=== PATIENT | male | born 1990 | race Caucasian/White ===

== ENCOUNTER 2018-04-29 21:54 | Emergency (ER) | payer BC, OTHER ==
--- NOTE | 2018-04-30 00:36 | ER ---
Nurse's Notes [facility] Name: Soham Shabazz Age: 27 yrs Sex: Male : 1990 Arrival Date: 04/29/2018 Time: 22:10 Bed 12 Private MD: Diagnosis: Low back pain;Sciatica, right side Presentation: 04/29 22:31 Presenting complaint: Patient states: "I've got a lower back injury from work that aj1 happened around 5:05, at first it hurt on the right side its getting worse and radiating to left side of my back and into my leg. I also have tingling in my toes on my right leg." Reports that pain is worse with movement. States he was carrying a box of 2000 copies and when he went to put it in the car he tripped on his left foot, then caught that box and twisted. He felt a pull and some sharp pain at that time. Transition of care: patient was not received from another setting of care. Onset of symptoms was April 29, 2018. Risk Assessment: Do you want to hurt yourself or someone else? Patient reports no desire to harm self or others. Initial Sepsis Screen: Does the patient meet any 2 criteria? No. Patient's initial sepsis screen is negative. Does the patient have a suspected source of infection? No. Patient's initial sepsis screen is negative. Care prior to arrival: None. 22:31 Method Of Arrival: Ambulatory aj1 22:31 Acuity: KRISTOPHER 4 aj1 Triage Assessment: 22:34 General: Appears in no apparent distress. uncomfortable, Behavior is calm, cooperative, aj1 appropriate for age. Pain: Complains of pain in mid back area Pain does not radiate. Pain currently is 4 out of 10 on a pain scale. at worst was 6 out of 10 on a pain scale. Quality of pain is described as sharp, Pain began 5 hours ago Is continuous, Aggravated by repositioning, movement. Neuro: Level of Consciousness is awake, alert, obeys commands, Oriented to person, place, time, situation, Moves all extremities. Full function Gait is steady, Speech is normal, Numbness in right foot. Cardiovascular: Patient's skin is warm and dry. Respiratory: Airway is patent Respiratory effort is even, unlabored, Respiratory pattern is regular, symmetrical. GI: No signs and/or symptoms were reported involving the gastrointestinal system. : No signs and/or symptoms were reported regarding the genitourinary system. Derm: No signs and/or symptoms reported regarding the dermatologic system. Skin is pink, warm \\T\\ dry. normal. Musculoskeletal: Range of motion: intact in all extremities. Historical: - Allergies: 22:34 No Known Allergies; aj1 - Home Meds: 22:34 None [Active]; aj1 - PMHx: 22:34 None; aj1 - PSHx: 22:34 None; aj1 - Immunization history:: Flu vaccine is not up to date. - Social history:: Smoking status: Patient/guardian denies using tobacco. - Ebola Screening: : Patient denies travel to an Ebola-affected area in the 21 days before illness onset. - Family history:: not pertinent. Screenin:20 Abuse screen: Denies threats or abuse. Nutritional screening: No deficits noted. fc Tuberculosis screening: No symptoms or risk factors identified. Fall Risk None identified. Assessment: 22:13 Reassessment: Patient is on the phone with his work, states that he will let us know aj1 when he is ready to be triaged. 23:20 General: Appears uncomfortable, obese, Behavior is calm, cooperative, appropriate for fc age. Pain: Complains of pain in low back area Pain radiates to right leg Pain currently is 4 out of 10 on a pain scale. at worst was 7 out of 10 on a pain scale. Quality of pain is described as aching, dull, radiating, Pain began 6 hrs ago Is continuous, Aggravated by increased activity, repositioning, weight bearing. Neuro: Level of Consciousness is awake, alert, obeys commands, Oriented to person, place, time, situation, Laundry Superintendent are equal bilaterally Moves all extremities. Full function Gait is steady, Speech is normal, Facial symmetry appears normal. Cardiovascular: No deficits noted. Respiratory: No deficits noted. GI: No deficits noted. : No deficits noted. EENT: No deficits noted. Derm: Skin is pink, warm \\T\\ dry. Musculoskeletal: Circulation, motion, and sensation intact. Capillary refill < 3 seconds, Range of motion: intact in all extremities, Reports pain in low back area that radiates down his right leg. 04/30 00:01 Reassessment: PT TO XRAY WITH [employer]. bp 00:18 Reassessment: PT RETURNED FROM XRAY. ALL CURRENT ORDERS COMPLETED. NO ACUTE FINDINGS AT bp THIS TIME. 00:52 Reassessment: PT D/C HOME AMBULATORY, DX WITH SCIATICA. bp Vital Signs: 04/29 22:34 BP 135 / 87; Pulse 98; Resp 18; Temp 98.1(O); Pulse Ox 98% on R/A; Weight 139.71 kg aj1 (R); Height 6 ft. 0 in. (182.88 cm); Pain 10/10; 22:34 Body Mass Index 41.77 (139.71 kg, 182.88 cm) aj1 ED Course: 22:10 Patient arrived in ED. aj1 22:34 Triage completed. aj1 22:34 Arm band placed on Patient placed in waiting room, Patient notified of wait time. aj1 23:20 Patient has correct armband on for positive identification. Call light in reach. fc 23:33 Guillermo Nash MD is Attending Physician. leticia 23:52 Edgar Helm, MARIA DOLORES is Primary Nurse. bp 04/30 00:06 Patient moved to radiology via wheelchair. kw 00:06 X-ray completed. Patient tolerated procedure well. kw 00:06 Patient moved back from radiology. kw 00:09 Lumbar Spine (3 Views) XRAY In Process Unspecified. EDMS 00:52 No provider procedures requiring assistance completed. Patient did not have IV access bp during this emergency room visit. Administered Medications: 00:45 Drug: Motrin 800 mg Route: PO; bp 00:51 Follow up: Response: Medication administered at discharge. bp 00:45 Drug: Decadron 4 mg Route: PO; bp 00:51 Follow up: Response: Medication administered at discharge. bp 00:45 Drug: Cascade 10 mg-325 mg 1 tabs Route: PO; bp 00:51 Follow up: Response: Medication administered at discharge. bp 00:45 Drug: Valium 5 mg Route: PO; bp 00:51 Follow up: Response: Medication administered at discharge. bp Outcome: 00:36 Discharge ordered by . leticia 00:52 Discharged to home ambulatory, with family. bp 00:52 Condition: stable 00:52 Discharge instructions given to patient, Instructed on discharge instructions, follow up and referral plans. medication usage, Demonstrated understanding of instructions, follow-up care, medications, Prescriptions given X 4. 00:53 Patient left the ED. bp Signatures: Dispatcher [employer] Marva Montgomery RN RN aj1 Guillermo Nash MD MD cha Chretien, Felicia, RN RN Mis Montoya Brian, MARIA DOLORES RN bp
--- NOTE | 2018-04-30 00:36 | EDPHYS ---
Physician Documentation [facility] Name: Soham Shabazz Age: 27 yrs Sex: Male : 1990 Arrival Date: 04/29/2018 Time: 22:10 Bed 12 Private MD: ED Physician Guillermo Nash HPI: 04/30 00:29 This 27 yrs old Male presents to ER via Ambulatory with complaints of Back leticia Pain. 00:29 The patient presents with pain that is acute. The symptoms are located in the low back, leticia coccyx area, lumbar area, sacrum, left low back and right low back. Onset: The symptoms/episode began/occurred yesterday. The pain radiates to the buttocks and right leg and right foot. Associated signs and symptoms: Pertinent positives:. Modifying factors: The patient symptoms are alleviated by remaining still, the patient symptoms are aggravated by any movement, bending, coughing, lifting, movement, nothing, playing sports. Severity of symptoms: At their worst the symptoms were moderate, in the emergency department the symptoms are unchanged. Historical: - Allergies: 04/29 22:34 No Known Allergies; aj1 - Home Meds: 22:34 None [Active]; aj1 - PMHx: 22:34 None; aj1 - PSHx: 22:34 None; aj1 - Immunization history:: Flu vaccine is not up to date. - Social history:: Smoking status: Patient/guardian denies using tobacco. - Ebola Screening: : Patient denies travel to an Ebola-affected area in the 21 days before illness onset. - Family history:: not pertinent. ROS: 04/30 00:29 Constitutional: Negative for fever, chills, and weight loss, Eyes: Negative for injury, leticia pain, redness, and discharge, ENT: Negative for injury, pain, and discharge, Neck: Negative for injury, pain, and swelling, Cardiovascular: Negative for chest pain, palpitations, and edema, Respiratory: Negative for shortness of breath, cough, wheezing, and pleuritic chest pain, Abdomen/GI: Negative for abdominal pain, nausea, vomiting, diarrhea, and constipation, Back: Negative for injury and pain, : Negative for injury, bleeding, discharge, and swelling, MS/Extremity: Negative for injury and deformity, Skin: Negative for injury, rash, and discoloration, Neuro: Negative for headache, weakness, numbness, tingling, and seizure, Psych: Negative for depression, anxiety, suicide ideation, homicidal ideation, and hallucinations, Allergy/Immunology: Negative for hives, rash, and allergies. Exam: 00:29 Constitutional: This is a well developed, well nourished patient who is awake, alert, leticia and in no acute distress. Head/Face: Normocephalic, atraumatic. Eyes: Pupils equal round and reactive to light, extra-ocular motions intact. Lids and lashes normal. Conjunctiva and sclera are non-icteric and not injected. Cornea within normal limits. Periorbital areas with no swelling, redness, or edema. ENT: Nares patent. No nasal discharge, no septal abnormalities noted. Tympanic membranes are normal and external auditory canals are clear. Oropharynx with no redness, swelling, or masses, exudates, or evidence of obstruction, uvula midline. Mucous membranes moist. Chest/axilla: Normal chest wall appearance and motion. Nontender with no deformity. No lesions are appreciated. 00:29 Neck: Exam negative for 00:29 Cardiovascular: Rate: normal, Rhythm: regular. 00:29 Back: pain, that is mild, that is moderate, ROM is normal, painful, decreased, decreased. Vital Signs: 04/29 22:34 BP 135 / 87; Pulse 98; Resp 18; Temp 98.1(O); Pulse Ox 98% on R/A; Weight 139.71 kg aj1 (R); Height 6 ft. 0 in. (182.88 cm); Pain 10/10; 22:34 Body Mass Index 41.77 (139.71 kg, 182.88 cm) aj1 MDM: 23:34 Patient medically screened. [facility] 04/30 00:29 Data reviewed: vital signs, nurses notes, lab test result(s), radiologic studies, plain [facility] films. 04/29 23:34 Order name: Urine Culture [facility] 04/30 00:29 Order name: Urine Dipstick--Ancillary (enter results) eb 04/29 23:34 Order name: Lumbar Spine (3 Views) XRAY [facility] 04/29 23:34 Order name: Urine Dipstick-Ancillary (obtain specimen); Complete Time: 00:07 [facility] Administered Medications: 00:45 Drug: Motrin 800 mg Route: PO; bp 00:51 Follow up: Response: Medication administered at discharge. bp 00:45 Drug: Decadron 4 mg Route: PO; bp 00:51 Follow up: Response: Medication administered at discharge. bp 00:45 Drug: Mccook 10 mg-325 mg 1 tabs Route: PO; bp 00:51 Follow up: Response: Medication administered at discharge. bp 00:45 Drug: Valium 5 mg Route: PO; bp 00:51 Follow up: Response: Medication administered at discharge. bp Disposition: 04/30/18 00:36 Discharged to Home. Impression: Low back pain, Sciatica, right side. - Condition is Stable. - Discharge Instructions: Back Pain, Adult, Musculoskeletal Pain, Sciatica, Back Injury Prevention, [id number], Back Pain, Adult, [id number], Sciatica, [id number]. - Prescriptions for Ibuprofen 600 mg Oral Tablet - take 1 tablet by ORAL route every 6 hours As needed take with food; 21 tablet. Skelaxin 800 mg Oral Tablet - take 1 tablet by ORAL route every 6 hours As needed; 29 tablet. Tylenol- Codeine #3 300-30 mg Oral Tablet - take 2 tablet by ORAL route every 6 hours As needed; 30 tablet. Valium 10 mg Oral Tablet - take 1 tablet by ORAL route every 8 hours As needed; 20 tablet. Medrol (George) 4 mg Oral Tablets, Dose Pack - take 1 tablet by ORAL route as directed - follow package instructions; 1 packet. - Medication Reconciliation Form, Thank You Letter, Antibiotic Education, Prescription Opioid Use form. - Follow up: Private Physician; When: 2 - 3 days; Reason: Recheck today's complaints, Continuance of care, Re-evaluation by your physician. - Problem is new. - Symptoms have improved. Signatures: Dispatcher [employer] EDMarva Haynes RN RN aj1 Guillermo Nash MD MD cha Peltier, Brian, RN RN bp Corrections: (The following items were deleted from the chart) 00:53 00:36 04/30/2018 00:36 Discharged to Home. Impression: Low back pain; Sciatica, right bp side. Condition is Stable. Forms are Medication Reconciliation Form, Thank You Letter, Antibiotic Education, Prescription Opioid Use. Follow up: Private Physician; When: 2 - 3 days; Reason: Recheck today's complaints, Continuance of care, Re-evaluation by your physician. Problem is new. Symptoms have improved. leticia
[2018-04-30] MEDS ORDERED: DEXAMETHASONE 4 MG TAB ONE (00:40)
[2018-04-30] MEDS ORDERED: DIAZEPAM 5 MG TABLET ONE (00:41)
[2018-04-30] MEDS ORDERED: HYDROCODONE/APAP 10/325 TAB ONE (00:41)
[2018-04-30] MEDS ORDERED: IBUPROFEN 400 MG TAB ONE (00:42)
[2018-04-30 00:44] LABS: Urine Blood NEGATIVE (NEG); Urine Glucose NEGATIVE (NEG); Urine Protein 1+ (NEG); Urine pH 6.5 (5.0-7.0)
--- NOTE | 2018-04-30 12:29 | RAD REPORT ---
EXAM DESCRIPTION: RAD - Lumbar Spine 3 Views - 04/30/2018 12:10 am CLINICAL HISTORY: PAIN Radiculopathy COMPARISON: No comparisons FINDINGS: Vertebral body heights appear maintained. No compression fracture noted. Disc spaces are m aintained. Bilateral spondylolysis suspected at L5-S1. IMPRESSION: Bilateral spondylolysis suspected at L5-S1.
== END 2018-04-30 00:53 | disposition home or self-care (01) ==
LOC: ER 21:54
DX: M54.31 Sciatica, right side (principal)
CPT/HCPCS: 72100; 81003; 87086; 87088; 99283